=== PATIENT | female | born 1965 | race Two or more races ===

== ENCOUNTER 2020-12-17 19:31 | Outpatient (CLI) | payer BC ==
--- NOTE | 2020-12-18 00:02 | Ultrasound Report ---
PROCEDURE: Duplex Ext Veins Bilateral INDICATIONS: Leg swelling, pancreatic cancer TECHNIQUE: Real-time imaging, as well as color and pulse Doppler interrogation, were performed of the deep veins of both legs from the inguinal ligament to the popliteal fossa. COMPARISON: None FINDINGS: The deep veins are normally compressible, and free of intraluminal thrombus. Color and pu lse Doppler demonstrate normal phasic intravascular flow. There is normal augmentation response to d istal compression maneuver. IMPRESSION: No evidence of deep venous thrombosis, bilateral lower extremities Reviewed by: Roni Casillas MD on 12/17/2020 11:00 PM SH[facility]ONDA Approved by: Roni Casillas MD on 12/17/2020 11:00 PM SHARONDA Station ID: [id number]
== END 2020-12-17 19:32 | disposition home or self-care (01) ==
LOC: DI 19:31
PROVIDERS: ATTEND Physician Assistant Medical
DX: C25.0 Malignant neoplasm of head of pancreas (principal); R22.43 Localized swelling, mass and lump, lower limb, bilateral
CPT/HCPCS: 93970